=== PATIENT | female | born 1935 | race Caucasian/White ===

== ENCOUNTER → 2016-04-11 | Outpatient (CLI) | payer MEDICARE, OTHER ==
[~2016-04-11] MED LIST: ACIDOPHILUS1 CAP PO; ALBUTEROL17 GM INH; ALBUTEROL17 GM PO; ALDACTONE25 MG PO; ALL DAY ALLERGY10 M3 PO; ALLERGY RELIEF10 MG PO; AMIODARONE HCL400 MG PO; ASPIRIN EC81 M1 PO; ASPIRIN81 M2 PO; ATENOLOL PO; BENICAR20 MG PO; CALCIUM 500 +1 EAC2 PO; CARAFATE1 GM PO; CARDIZEM CD180 M1 PO; CARTIA XT180 MG PO; CITALOPRAM HBR10 MG PO; CORDARONE200 M1 PO; COUMADIN2.5 MG PO; COUMADIN5 MG PO; CRESTOR40 MG PO; DEXILANT30 MG PO; DOCUSATE SODIU100 MG PO; EVISTA60 M1 PO; EVISTA60 MG PO; FLAGYL PO; FLEXERIL10 MG PO; FOSAMAX70 MG PO; FUROSEMIDE40 MG PO; GLIPIZIDE5 MG/BOTT1 PO; GLUCOTROL PO; GLUCOTROL XL PO; HCTZ PO; K-DUR20 ME1 PO; LORATADINE PO; LYRICA50 MG PO; LYRICA75 MG PO; METFORMIN PO; METOLAZONE5 MG; METOPROLOL SUCC25 MG PO; METOPROLOL TART25 MG PO; MICRO-K PO; MUPIROCIN; NAPROXEN PO; NASONEX17 GM; NORCO 7.5-3251 EACH PO; OXAYDO7.5 MG PO; OXYCODONE HCL5 MG PO; PARICALCITOL1 MCG PO; PRILOSEC PO; PROMETHAZINE HC25 MG PO; RESTASIS32 EA; RESTASIS32 EA OU; TIMOPTIC2.5 ML OU; TYLENOL WITH C1 EACH PO; ULORIC40 MG PO; ULORIC80 MG PO; XALATAN OU; XERESE 5%-1% CRE5 GM TOP; ZANTAC PO; ZEMPLAR1 MCG PO; ZOLPIDEM TARTRAT5 M1; ZOLPIDEM TARTRAT5 M1 PO
--- NOTE | ~2016-04-11 | NM19 ---
[facility] A Service of [facility] RADIOLOGY TEXT RESULTS PATIENT: MELE NUNO LOCATION: [facility] : 35 UNIT #: [id number] AGE: [address]: Song West MD SEX: F ORDER DR: [id number] [facility] [address] [place], [place] [address] [id number] O MR#: [id number] Acc #: [id number] NAME: MELE NUNO. : 1935 SEX: F STUDY DATE/TIME: 04/11/2016 8:40 UNIT: [facility] ROOM: STUDY DESCRIPTION: MS Gastric Emptying Study Attending Physician: Song West M.D. Referring Physician: Song West M.D. Ordering Physician: Song West M.D. Primary Care Physician: Jeana Johnston M.D. MEDICAL IMAGING REPORT This report is preliminary unless electronic signature is present EXAM Gastric emptying scan, 04/11/2016 HISTORY Upper abdominal pain and bloating for 1 year and lower abdominal pain with constipation and weight gain. Upper endoscopy 1 year ago showed no gastric emptying. Gastroparesis. Bezoar identified on upper endoscopy 1 year ago. FINDINGS The patient ingested 509 mcCi of technetium 99m tagged sulfur colloid in eggs. Images of the upper abdomen were obtained for 120 minutes. The gastric half-emptying time was calculated to be 119 minutes (normal is between 65 and 90 minutes). IMPRESSION Delayed gastric half emptying time of 119 minutes. Dictated by... Karlos Penn M.D. THIS IS AN ELECTRONICALLY VERIFIED REPORT Karlos Penn M.D. at 04/14/2016 2:19 PM [place] TD: 04/11/2016 16:39 JOB #: [id number] MEDICAL IMAGING REPORT COPY
== END | disposition home or self-care (01) ==
LOC: CNUC 06:49
DX: R10.10 Upper abdominal pain, unspecified (principal); R10.30 Lower abdominal pain, unspecified; K59.00 Constipation, unspecified
CPT/HCPCS: 78264; A9541

== ENCOUNTER → 2016-07-15 | Day surgery (SDC) | payer OTHER ==
--- NOTE | ~2016-07-15 | OR ---
Unit #: [id number] #: [id number] Patient: MELE NUNO [id number] [facility] [address] [place], [place] [address] [id number] O MR#: [id number] NAME: MELE NUNO ROOM: Date of Procedure: 07/15/2016 Admission Date: 07/15/2016 Surgeon: Song West M.D. : 1935 Attending Physician: Song West M.D. Primary Care Physician: Jeana Johnston M.D. PROCEDURE OPERATIVE NOTE PREOPERATIVE DIAGNOSES Gastric polyp with high-grade dysplasia; family history of gastric carcinoma. POSTOPERATIVE DIAGNOSIS Gastritis. PROCEDURE PERFORMED EGD to third portion of the duodenum with antral biopsy and KASH testing. ANESTHESIA Monitored anesthesia. INDICATION Ms. Nuno is an 80-year-old female with multiple co-morbid conditions who was having some epigastric discomfort in the past and was evaluated and found to have diabetic gastroparesis. On endoscopic evaluation she had a single gastric polyp that was removed that showed some high-grade dysplasia. She does have a family history of carcinoma. At that time, she was on a proton pump inhibitor, which has since been discontinued. PROCEDURE The patient was admitted to [facility], positively identified and transported to the endoscopy unit, and after appropriate monitoring and positioning, a bite block was placed, and she was sedated by the nurse feed manager. The endoscope was passed through the oral cavity into the esophagus. Under direction vision, we passed through the esophagus, and into the stomach. The stomach was insufflated, and we were able to identify the pylorus and passed into the third portion of the duodenum. The duodenum and duodenal bulb were normal. As I came back into the stomach, we fully insufflated the stomach for proper visualization. The stomach was well cleared, whereas previously there had been retained foodstuff. She had some gastritis, particularly in the antrum, and a KASH test was taken. I carefully searched the entire mucosal surface of the stomach and could not identify any masses, ulcers or residual polyps. There was an area of, what appeared to be, some scarring, and that is probably where the previous polyp was removed, and it was biopsied, as well. Due to her history of being anticoagulated, I placed hemoclips at both biopsy sites. On retrograde visualization, the GE junction was at 40 cm, and no hiatal hernia was appreciated. The esophagus and larynx were normal. Unit #: [id number] #: [id number] Patient: MELE NUNO The patient tolerated the procedure well, transported to recovery in stable condition. At this time I have discussed the findings with the family, and we will call with results of the biopsy and KASH testing results, but at this time no other interventions are necessary. Dictated by... Song West M.D. LATOYA/elidia TD: 07/15/2016 11:11 JOB #: [id number] PROCEDURE OPERATIVE NOTE Page 1 of 1 X Song West MD PROCEDURE OPERATIVE NOTE
== END | disposition home or self-care (01) ==
LOC: COPS 06:52
DX: K29.50 Unspecified chronic gastritis without bleeding (principal); I10 Essential (primary) hypertension; I48.91 Unspecified atrial fibrillation; I50.9 Heart failure, unspecified; E11.43 Type 2 diabetes mellitus with diabetic autonomic (poly)neuropathy; K31.84 Gastroparesis; G47.30 Sleep apnea, unspecified; E66.9 Obesity, unspecified; N18.4 Chronic kidney disease, stage 4 (severe); N18.6 End stage renal disease; E11.22 Type 2 diabetes mellitus with diabetic chronic kidney disease; M19.90 Unspecified osteoarthritis, unspecified site; E78.5 Hyperlipidemia, unspecified; Z79.82 Long term (current) use of aspirin; Z88.2 Allergy status to sulfonamides; Z88.8 Allergy status to other drugs, medicaments and biological substances; Z90.710 Acquired absence of both cervix and uterus; Z80.0 Family history of malignant neoplasm of digestive organs; Z87.891 Personal history of nicotine dependence; Z79.899 Other long term (current) drug therapy; Z79.01 Long term (current) use of anticoagulants; Z79.84 Long term (current) use of oral hypoglycemic drugs; Z90.49 Acquired absence of other specified parts of digestive tract
CPT/HCPCS: 87077; 88305; 88312